=== PATIENT | male | born 1960 | race Caucasian/White ===

== ENCOUNTER 2022-06-26 04:38 | Day surgery (SDC) | payer OTHER ==
[2022-06-25 11:39] VITALS: BMI 26.9
[2022-06-26] MEDS ORDERED: LIDOCAINE HCL 2% (20ML MULTI-DOSE VIAL) ONE (11:34)
[2022-06-26 12:21] VITALS: TEMP 98.4
[2022-06-26 12:28] VITALS: PULSE 63
[2022-06-26 13:05] VITALS: BP 114/76; RESP 15
== END 2022-06-26 13:05 | disposition home or self-care (01) ==
LOC: JASU-ENDO 04:38
PROVIDERS: ATTEND Internal Medicine Gastroenterology
PROC: 0DB68ZX Excision of Stomach, Via Natural or Artificial Opening Endoscopic, Diagnostic (ICD-10-PCS; 2022-06-26)
PROC: 0DJD8ZZ Inspection of Lower Intestinal Tract, Via Natural or Artificial Opening Endoscopic (ICD-10-PCS; principal; 2022-06-26 11:00)
DX: Z12.11 Encounter for screening for malignant neoplasm of colon (principal); K29.50 Unspecified chronic gastritis without bleeding
CPT/HCPCS: 43239; G0121; 88305-TC; 88342-TC